=== PATIENT | female | born 1965 | race Caucasian/White ===

== ENCOUNTER 2021-02-17 14:09 | Emergency (ER) | payer BC ==
[~2021-02-17] VITALS: Ht 165.1 cm; Wt 77.1 kg
[2021-02-17 14:27] VITALS: BP_SYST 157
[2021-02-17] MEDS ORDERED: MORPHINE 4 MG INJ. 4 MG/ML VIAL IVP ONE (14:45)
[2021-02-17 15:07] LABS: BASOPHILS # (AUTO) 0.1 K/uL (0.0-0.2); BASOPHILS % (AUTO) 0.8 % (0.0-2.0); EOSINOPHILS # (AUTO) 0.1 K/uL (0.0-0.4); MEAN CORPUSCULAR HEMOGLOBIN 32 pg (27-31); MEAN CORPUSCULAR HGB CONC 34 % (32-36); MEAN CORPUSCULAR VOLUME 94 fL (79.0-98.0); MONOCYTES # (AUTO) 0.9 K/uL (0.0-1.0); MONOCYTES % (AUTO) 8.1 % (1.7-9.3); NEUTROPHILS # (AUTO) 9.3 K/uL (1.8-7.7); NEUTROPHILS % (AUTO) 81.1 % (40.0-70.0); PLATELET COUNT (AUTO) 253 K/uL (130-430); RED BLOOD CELL COUNT(AUTO) 4.68 MIL/uL (4.2-6.2); RED CELL DISTRIBUTION WIDTH 12.7 % (9.0-15.0); WHITE BLOOD COUNT (AUTO) 11.4 K/uL (4.8-10.8)
[2021-02-17 15:12] LABS: CALCIUM 9.5 mg/dL (8.4-11.0); CREATININE 0.89 mg/dL (0.55-1.30); POTASSIUM 3.6 mmol/L (3.5-5.1)
[2021-02-17 15:18] LABS: ALBUMIN 4.2 g/dL (3.4-4.8); TOTAL BILIRUBIN 0.4 mg/dL (0.0-1.0)
[2021-02-17] MEDS ORDERED: NACL 0.9% 1,000 ML IV ONE (15:45)
[2021-02-17] MEDS ORDERED: NAPR-1172 PO (17:05)
[2021-02-17] MEDS ORDERED: CYCL-10 PO (17:05)
[2021-02-17 17:14] VITALS: BP_SYST 143
== END 2021-02-17 17:15 | disposition home or self-care (01) ==
LOC: SED 14:09
DX: R07.89 Other chest pain (principal); V80.010A Animal-rider injured by fall from or being thrown from horse in noncollision accident, initial encounter; Y93.89 Activity, other specified; Y92.89 Other specified places as the place of occurrence of the external cause; Y99.8 Other external cause status
CPT/HCPCS: 36415; 71260; 74177; 76376; 80053; 83605; 85025; 96361; 96374; 99285; J2270; J7030; Q9967